=== PATIENT | male | born 1985 | race Caucasian/White ===

== ENCOUNTER 2019-12-01 19:51 | Emergency (ER) | payer BC, OTHER ==
--- NOTE | 2019-12-01 20:10 | EDM.PDOC ---
ED HPI GENERAL MEDICAL PROBLEM - General Chief Complaint: Upper Extremity Injury/Pain Stated Complaint: RT ARM INJURY Time Seen by Provider: 12/01/19 19:58 Source of Information: Reports: Patient History Limitations: Reports: No Limitations - History of Present Illness INITIAL COMMENTS - FREE TEXT/NARRATIVE: Patient is a 34-year-old male who presents to the emergency department with complaints of right upper arm and shoulder pain. Around 530 this evening he was working in his arm became wedged between a mcmullen arm and a door. Arm was able to be freed. He has been able to move the arm, however states it is painful. States that he felt a pop in his shoulder when the injury occurred. The majority of his pain is in his proximal humerus; however, he does also have some pain in the right shoulder. He has not taken any medications for pain. He has had no previous injury to that extremity. Right Upper Arm Pain Score (Numeric/FACES): 7 - Related Data Allergies Allergy/AdvReac Type Severity Reaction Status Date / Time No Known Allergies Allergy Verified 12/01/19 20:03 Home Meds: Home Meds Dextroamphetamine/Amphetamine [Adderall 10 mg Tablet] 10 mg PO BID 12/01/19 [ History] traZODone HCl [Trazodone HCl] 50 mg PO BEDTIME 12/01/19 [History] Past Medical History Genitourinary History: Reports: Pyelonephritis Psychiatric History: Reports: ADHD, Anxiety Social & Family History - Tobacco Use Smoking Status *Q: Never Smoker Second Hand Smoke Exposure: No - Caffeine Use Caffeine Use: Reports: Energy Drinks - Recreational Drug Use Recreational Drug Use: No Review of Systems - Review of Systems Review Of Systems: Comprehensive ROS is negative, except as noted in HPI. ED EXAM, GENERAL - Physical Exam Exam: See Below Exam Limited By: No Limitations General Appearance: Alert, WD/WN, No Apparent Distress Respiratory/Chest: No Respiratory Distress, Lungs Clear, Normal Breath Sounds, No Accessory Muscle Use, Chest Non-Tender Cardiovascular: Normal Peripheral Pulses, Regular Rate, Rhythm, No Edema, No Gallop, No JVD, No Murmur, No Rub Extremities: Other (Ecchymosis and edema to the medial and lateral aspect of the proximal humerus. Patient complains of tenderness to the shoulder, but there is no obvious bruising or swelling to that area. No obvious deformity to the humerus.) Psychiatric: Normal Affect, Normal Mood Skin Exam: Warm, Dry, Intact, Normal Color, No Rash Course - Vital Signs Last Recorded V/S: Last Vital Signs Temp 97.1 F 12/01/19 19:58 Pulse 89 12/01/19 19:58 Resp 20 12/01/19 19:58 BP 125/87 12/01/19 19:58 Pulse Ox 99 12/01/19 19:58 - Orders/Labs/Meds Orders: Active Orders 24 hr Category Date Time Status Humerus Rt [CR] Stat Exams 12/01/19 20:07 Taken Shoulder Comp Rt [CR] Stat Exams 12/01/19 20:07 Taken DME for Discharge [COMM] Routine Oth 12/01/19 20:33 Ordered Meds: Medications Discontinued Medications Generic Name Dose Route Start Last Admin Trade Name Abram PRN Reason Stop Dose Admin Ibuprofen 600 mg 12/01/19 20:33 12/01/19 20:40 Motrin PO 12/01/19 20:34 600 mg ONETIME ONE Administration - Re-Assessments/Exams Free Text/Narrative Re-Assessment/Exam: 12/01/19 20:34 X-rays were negative for any fractures. Patient will provided with a sling. Recommend that he follow-up in the clinic on Thursday. Discussed that the x-rays show bony abnormalities, however there is always a possibility there is a rotator cuff injury as he states he did feel a pop when it happened. Discharge instructions as documented. Departure - Departure Time of Disposition: 20:36 Disposition: Home, Self-Care 01 Condition: Good Clinical Impression: Contusion, arm, upper Qualifiers: Encounter type: initial encounter Laterality: right Qualified Code(s): S40.021A - Contusion of right upper arm, initial encounter - Discharge Information *PRESCRIPTION DRUG MONITORING PROGRAM REVIEWED*: No *COPY OF PRESCRIPTION DRUG MONITORING REPORT IN PATIENT FARIHA: No Instructions: Contusion, [id number] Referrals: PCP,None [Primary Care Provider] - Forms: ED Department Discharge, ED Return to Work/School Form Additional Instructions: You were seen in the emergency department today after having your right upper arm pinned at work. X-rays were completed and were negative for any fractures. As we discussed, you have a contusion of your upper arm. Additionally, the x- ray does not show tendons or ligaments, therefore there is always a possibility that there could be an injury to your rotator cuff. Recommend that you follow- up in the occupational health clinic on Thursday for a follow-up and to be cleared for work if appropriate. If your symptoms are not improving by that time, further imaging may be required. Recommend that you take ibuprofen as needed for pain. You may also ice over the area of injury for 20 minutes every 2 hours. Do not apply ice directly to the skin. Wear the sling for comfort, however ensure that you take your arm out of the sling a few times per day and perform range of motion exercises of the shoulder to prevent a frozen shoulder. Return to the ER as needed. Sepsis Event Note - Evaluation Sepsis Screening Result: No Definite Risk - Focused Exam Vital Signs: Vital Signs Temp Pulse Resp BP Pulse Ox 12/01/19 19:58 97.1 F 89 20 125/87 99 Date Exam was Performed: 12/01/19 Time Exam was Performed: 22:01 - My Orders Last 24 Hours: My Active Orders 12/01/19 20:07 Humerus Rt [CR] Stat Shoulder Comp Rt [CR] Stat 12/01/19 20:33 DME for Discharge [COMM] Routine - Assessment/Plan Last 24 Hours: My Active Orders 12/01/19 20:07 Humerus Rt [CR] Stat Shoulder Comp Rt [CR] Stat 12/01/19 20:33 DME for Discharge [COMM] Routine
[2019-12-01] MEDS ORDERED: Ibuprofen 600 MG Tab PO ONE (20:33)
--- NOTE | 2019-12-02 09:55 | CR ---
Right shoulder: 3 views of the right shoulder were obtained. Comparison: No prior shoulder exam. Glenohumeral joint and acromioclavicular joint appears within normal limits. No fracture, dislocation or other bony abnormality is identified. Impression: 1. No abnormality is identified on 3 view right shoulder exam. Diagnostic code #1 This report was dictated in MDT
--- NOTE | 2019-12-02 09:55 | CR ---
Right humerus: AP and lateral views of the right humerus were obtained. Comparison: No previous humerus study. No fracture or other bony abnormality is seen. Impression: 1. No abnormality is identified on 2 view right humerus exam. Diagnostic code #1 This report was dictated in MDT
== END 2019-12-01 20:46 | disposition home or self-care (01) ==
LOC: JD.ED 19:51
DX: S40.021A Contusion of right upper arm, initial encounter (principal); F41.9 Anxiety disorder, unspecified; Z79.899 Other long term (current) drug therapy; W23.0XXA Caught, crushed, jammed, or pinched between moving objects, initial encounter
CPT/HCPCS: 73030; 73060; 99283; A9270; 99282